=== PATIENT | female | born 1980 | race Caucasian/White ===

== ENCOUNTER → 2018-07-22 | Outpatient (CLI) | payer OTHER | LOC: FIMAGING 08:53 | PROVIDERS: ATTEND Orthopaedic Surgery | DX: M23.222 Derangement of posterior horn of medial meniscus due to old tear or injury, left knee (principal); M24.10 Other articular cartilage disorders, unspecified site; M22.42 Chondromalacia patellae, left knee; M76.52 Patellar tendinitis, left knee ==

== ENCOUNTER → 2018-11-07 | Outpatient (CLI) | payer OTHER | LOC: FIMAGING 18:48 | PROVIDERS: ATTEND Orthopaedic Surgery Hand Surgery | DX: S43.492A Other sprain of left shoulder joint, initial encounter (principal); M24.112 Other articular cartilage disorders, left shoulder ==